=== PATIENT | male | born 1980 | race African-American/Black ===

== ENCOUNTER → 2017-01-07 | Emergency (ER) | payer OTHER ==
[~2017-01-07] VITALS: Ht 172.7 cm; Wt 97.5 kg
[~2017-01-07] MED LIST: IBUPROFEN 600 MG TABLET PO ONE; LIDOCAINE VISCOUS 2% UD 15 ML UDC MM ONE; LIDOCAINE VISCOUS 2% UD 15 ML UDC ONE; PENICILLIN G BENZATHINE 2.4 MMU/4 ML ML IM ONE
[2017-01-07 16:42] VITALS: BP 145/66
== END | disposition home or self-care (01) ==
LOC: ER 16:39
DX: J02.9 Acute pharyngitis, unspecified (principal); J45.909 Unspecified asthma, uncomplicated; F17.210 Nicotine dependence, cigarettes, uncomplicated; Z88.2 Allergy status to sulfonamides
CPT/HCPCS: 96372; 99283; A4606; J0558; Z7610

== ENCOUNTER 2017-12-13 19:55 | Emergency (ER) | payer OTHER ==
[~2017-12-13] VITALS: Ht 172.7 cm; Wt 97.5 kg
--- NOTE | 2017-12-13 20:10 | NUR ---
RECEIVED REPORT AT THIS TIME. HERE FOR SOB X4 DAYS. WHEEZING AUSCULTATED. SPEAKS IN FULL SENTENCES WITHOUT GASPING FOR BREATHS. RESP EVEN AND UNLABORED. NON DIAPHORETIC. DENIES CP. PLACED ON MONITOR AND GOWNED. S/O AT BEDSIDE. CARE PLAN DISCUSSED.
[2017-12-13] MEDS ORDERED: methylPREDNISolone SOD SUCC 125 MG/2ML VIAL ONE (20:23)
[2017-12-13] MEDS ORDERED: ALBUTEROL FS 2.5 MG/3 ML VIAL.NEB ONE (20:27)
[2017-12-13] MEDS ORDERED: methylPREDNISolone SOD SUCC 125 MG/2ML VIAL IV ONE (20:30)
[2017-12-13] MEDS ORDERED: ALBUTEROL FS 2.5 MG/3 ML VIAL.NEB CONTNEB ONE (20:30)
--- NOTE | 2017-12-13 20:33 | NUR ---
MEDICATED ORDERED AND RECEIVING BREATHING TX
[2017-12-13 20:34] LABS: BASOPHILS # (AUTO) 0.2 /CMM (0.0-0.2); BASOPHILS % (AUTO) 2.3 % (0.0-2.0); EOSINOPHILS % (AUTO) 12.7 % (0.0-6.0); HEMATOCRIT 44 % (39-51); HEMOGLOBIN 15.1 g/dL (13.5-17.5); LYMPHOCYTES # (AUTO) 2.5 /CMM (0.8-4.8); LYMPHOCYTES % (AUTO) 32.2 % (20.0-44.0); MEAN CORPUSCULAR HEMOGLOBIN 28 PG (26.0-33.0); MEAN CORPUSCULAR HGB CONC 34 g/dl (31.0-36.0); MEAN CORPUSCULAR VOLUME 81 fL (80-96); MONOCYTES # (AUTO) 0.6 /CMM (0.1-1.30); MONOCYTES % (AUTO) 7.6 % (2.0-12.0); NEUTROPHILS # (AUTO) 3.4 /CMM (1.8-8.9); NEUTROPHILS % (AUTO) 45.2 % (43.0-81.0); PLATELET COUNT (AUTO) 325 /CMM (150-450); RDW COEFFICIENT OF VARIATION 12.5 (11.5-15.0); RED BLOOD CELL COUNT(AUTO) 5.42 MIL/uL (4.5-6.0); WHITE BLOOD COUNT (AUTO) 7.7 K/uL (4.3-11.0)
[2017-12-13 20:47] LABS: CALCIUM, SERUM 8.8 mg/dL (8.5-10.1); CREATININE 1.2 mg/dL (0.6-1.3); POTASSIUM 3.1 mmol/L (3.5-5.1)
--- NOTE | 2017-12-13 21:38 | NUR ---
STATES "I FEEL BETTER"; NO WHEZZING AUSCULTATED AT THSI TIME. Patient discharged to home in stable condition. Written and verbal after care instructions given. Patient verbalizes understanding of instruction. IV removed. Catheter intact and site benign. Pressure and 4x4 applied to site. No bleeding noted. Ambulatory with a steady gait
[2017-12-13 21:39] VITALS: BP 160/79
== END 2017-12-13 21:40 | disposition home or self-care (01) ==
LOC: ER 19:59
DX: J45.901 Unspecified asthma with (acute) exacerbation (principal); F17.200 Nicotine dependence, unspecified, uncomplicated; Z88.2 Allergy status to sulfonamides
CPT/HCPCS: 36415; 71045; 80048; 83880; 85025; 93005; 94640; 96374; 99285; A4606; J2930; Z7610